=== PATIENT | female | born 2000 | race Caucasian/White ===

== ENCOUNTER 2018-06-05 02:37 | Emergency (ER) | payer OTHER ==
--- NOTE | 2018-06-05 02:57 | EDPHY ---
H & P Stated Complaint: SI M1 Time Seen by Provider: 06/05/18 02:47 HPI/ROS: HPI The patient presents with suicidal ideation, placed on M1 hold by [facility] PD after boyfriend contacted police because patient had sent text messages to him stating that she wanted to end her life and that he should notify her family. The patient says she is no longer feeling this way and does not have a plan to hurt herself. She is not sure why she sent these text messages. She says she does have a history of some depression though is not on any medications. In the past she did see a therapist. In 2016 she says that she tried to hurt herself but would not go into further detail. She says school is going okay and that she is eating and sleeping normally.. REVIEW OF SYSTEMS 10 systems were reviewed and negative with the exception of the elements mentioned in the history of present illness. PMHx: Healthy Soc Hx: [facility] student PHYSICAL General Appearance: Alert, tearful Eyes: Pupils equal and round no pallor or injection ENT, Mouth: Mucous membranes moist Respiratory: There are no retractions, lungs are clear to auscultation Cardiovascular: Regular rate and rhythm Gastrointestinal: Abdomen is soft and non-tender, no masses, bowel sounds normal Neurological: A&O, moves all extremities Skin: Warm and dry, no rashes Musculoskeletal: Neck is supple non tender Extremities: symmetrical, full range of motion Psychiatric: Patient is oriented X 3, there is no agitation Source: Patient, Police Exam Limitations: No limitations Constitutional: Initial Vital Signs Temperature (C) 36.6 C 06/05/18 02:53 Heart Rate 96 06/05/18 02:53 Respiratory Rate 16 06/05/18 02:53 Blood Pressure 124/80 H 06/05/18 02:53 O2 Sat (%) 99 06/05/18 02:53 O2 Delivery Mode Room Air Allergies/Adverse Reactions: No Known Allergies Allergy (Unverified 06/05/18 02:52) Home Medications: Medication Instructions Recorded Spironolactone 06/05/18 Medical Decision Making Differential Diagnosis: 18-year-old female presents with suicidal ideation, texting her boyfriend that she wanted to end her life. Now on M1 hold placed by police. Differential diagnosis includes acute stress response, suicidal ideation with underlying depression, alcohol intoxication. At 5:30 a.m., the patient has remained stable throughout her time here in the emergency department. Labs have returned in her urine toxicology is positive for cocaine and marijuana. She is awaiting mental health evaluation. 6:45 a.m. The patient was evaluated by the mental health worker Jerel. The hold was lifted and the patient will be discharged home. She was thought to have some attention seeking behavior and is no longer suicidal. - Data Points Laboratory Results: Laboratory Results 06/05/18 02:45 06/05/18 02:45 06/05/18 06/05/18 06/05/18 04:29 02:45 02:45 WBC RBC Hgb Hct MCV MCH MCHC RDW Plt Count MPV Neut % (Auto) Lymph % (Auto) [place] % (Auto) Eos % (Auto) Baso % (Auto) Nucleat RBC Rel Count Absolute Neuts (auto) Absolute Lymphs (auto) Absolute Monos (auto) Absolute Eos (auto) Absolute Basos (auto) Absolute Nucleated RBC Immature Gran % Immature Gran # Sodium 141 mEq/L mEq/L (135-145) Potassium 3.8 mEq/L mEq/L (3.5-5.2) Chloride 106 mEq/L mEq/L (97-110) Carbon Dioxide 25 mEq/l mEq/l (22-31) Anion Gap 10 mEq/L mEq/L (6-14) BUN 12 mg/dL mg/dL (7-23) Creatinine 0.8 mg/dL mg/dL (0.6-1.0) Estimated GFR > 60 Glucose 104 mg/dL H mg/dL (70-100) Calcium 10.1 mg/dL mg/dL (8.5-10.4) Beta HCG, Qual NEGATIVE Urine Opiates Screen NEGATIVE (NEGATIVE) Urine Barbiturates NEGATIVE (NEGATIVE) Ur Phencyclidine Scrn NEGATIVE (NEGATIVE) Ur Amphetamine Screen NEGATIVE (NEGATIVE) U Benzodiazepines Scrn NEGATIVE (NEGATIVE) Urine Cocaine Screen NON-NEGATIVE H (NEGATIVE) U Marijuana (THC) Screen NON-NEGATIVE H (NEGATIVE) Ethyl Alcohol < 10 mg/dL mg/dL (0-10) 06/05/18 02:45 WBC 6.84 10^3/uL 10^3/uL (3.80-9.50) RBC 4.72 10^6/uL 10^6/uL (4.18-5.33) Hgb 14.6 g/dL g/dL (12.6-16.3) Hct 43.3 % % (38.0-47.0) MCV 91.7 fL fL (81.5-99.8) MCH 30.9 pg pg (27.9-34.1) MCHC 33.7 g/dL g/dL (32.4-36.7) RDW 12.6 % % (11.5-15.2) Plt Count 341 10^3/uL 10^3/uL (150-400) MPV 9.1 fL fL (8.7-11.7) Neut % (Auto) 24.9 % L % (39.3-74.2) Lymph % (Auto) 65.6 % H % (15.0-45.0) [place] % (Auto) 5.8 % % (4.5-13.0) Eos % (Auto) 2.5 % % (0.6-7.6) Baso % (Auto) 0.9 % % (0.3-1.7) Nucleat RBC Rel Count 0.0 % % (0.0-0.2) Absolute Neuts (auto) 1.70 10^3/uL 10^3/uL (1.70-6.50) Absolute Lymphs (auto) 4.49 10^3/uL H 10^3/uL (1.00-3.00) Absolute Monos (auto) 0.40 10^3/uL 10^3/uL (0.30-0.80) Absolute Eos (auto) 0.17 10^3/uL 10^3/uL (0.03-0.40) Absolute Basos (auto) 0.06 10^3/uL 10^3/uL (0.02-0.10) Absolute Nucleated RBC 0.00 10^3/uL 10^3/uL (0-0.01) Immature Gran % 0.3 % % (0.0-1.1) Immature Gran # 0.02 10^3/uL 10^3/uL (0.00-0.10) Sodium Potassium Chloride Carbon Dioxide Anion Gap BUN Creatinine Estimated GFR Glucose Calcium Beta HCG, Qual Urine Opiates Screen Urine Barbiturates Ur Phencyclidine Scrn Ur Amphetamine Screen U Benzodiazepines Scrn Urine Cocaine Screen U Marijuana (THC) Screen Ethyl Alcohol Departure - Departure Disposition: Home, Routine, Self-Care Clinical Impression: Cocaine use, Marijuana use, Stress response Condition: Good Instructions: Depression (ED) Additional Instructions: Please [facility]-up with the student center for further care. Referrals: [facility] Perdomo,. [Clinic] - As per Instructions
[2018-06-05 03:00] LABS: PLATELET COUNT 341 10^3/uL (150-400)
--- NOTE | 2018-06-05 06:34 | ASMTTCLDSP ---
TLC Discharge Disposition Disposition: Answers: Discharge If Answers: Yes DISCHARGED: Patient/family given suicide hotline info & SAMHSA brochure? Disposition Notes: Notes: Pt stated commitment or ability to keep self safe, denied thoughts of self harm or harm to others. Pt expressed a desire to f/u with [facility] at . Pt was given local hotline information and SAMHSA brochure After an Attempt and encouraged to follow up with [facility]. Discharge Concerns/Recommendations: Notes: In consultation with [facility] ED physician, Verna Allan MD, Dr. Allan concurred that pt does not appear to meet 27-65 criteria requiring psychiatric hospitalization as pt does not appear to be an imminent risk of harm to self/others/gravely disabled due to a mental illness condition. Dr. Allan provided verbal order read back vacating M1 hold at 0600 hrs. Was patient given the Answers: Not applicable Inpatient Behavioral Health Prohibited Belongings List while in the ED? Psychiatrist vacating M1 Verna Allan MD Hold: Date and time M1 hold 06/05/2018 06:00 AM vacated (time format is hh:mm): Type of Hold: Answers: M1/72-hour Hold Hold initiated by: Answers: Police Date Signed: 06/05/2018 06:34 AM Electronically Signed By:Jerel Tran
--- NOTE | 2018-06-05 06:34 | ASMTTLCEVL ---
TLC Evaluation - Basic Information Evaluation Start Date and 06/05/2018 05:30 AM Time Hospital Status Answers: M1 Hold 72-hr M1 Hold Start Date 06/05/2018 02:07 AM and Time Patient statement Notes: I was just upset. Me and my boyfriend broke up. I was wanting attention. I dont want to kill myself and can ensure my own safety if permitted to be released from the ED. Id like to follow up with the counseling services offered at [facility]. 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 Respondent told Blas she was going to cut herself and there was a knife on her bed (large kitchen knife.). Diagnosis History Notes: Pt reported prior history of depression. Prior suicide attempts Notes: Pt reported she took an overdose of OTC pills at age 14 which was followed by a hospitalization in [place]. Prior hospitalizations Notes: Pt reported being hospitalized for a week at a hospital in [place] at age 14 following an overdose of OTC pills. Pt could not recall name of the hospital. Treatment Responses Notes: Saw a counselor for a couple of months following her discharge from the hospital in [place]. History of violence Notes: Pt denied homicidal ideation/intent/plans to harm anyone, denied any history of aggression/violence. Therapist: None currently. Saw a counselor for a couple of months following her discharge from the hospital in [place]. Psychiatrist: None. Medications (name, dosage, route, freq uency) Notes: None. Allergies/Reaction Notes: NKDA. Sleep Notes: Pt reported good. Appetite Notes: Pt reported good. Medical/Surgical history Notes: Noncontributory. Substance use history (frequency, intensity, his tory, duration) Notes: Pt reported having first tried alcohol and marijuana at age 14. She reported she typically will consume 4-5 shots of Vodka 1-2 times per week, with last use being on 06/02/18. She reported she typically will smoke less than a gram of marijuana per episode, on a weekly basis, with last use being on 06/02/18. She reported she first tried cocaine at age 17 and stated she will use it when offered by friends, perhaps on a monthly basis, with last reported use being on 06/02/18 a couple of lines of cocaine. She otherwise denied any other history of illicit substance use. BAL was zero. UDS results positive for marijuana and cocaine. Family composition Notes: Parents when pt was 8 yo. Both parents still reside in the [place], [place] area. She has 2 brothers, ages 17 and 12 and a sister, age 14. Need for family Answers: No participation in patient's care Family psychiatric/substance abuse history Notes: None reported. Developmental history Notes: Pt reported she was born and raised in [place], [place]. She endorsed having achieved normal childhood developmental milestones. She denied any history of learning challenges or ADD/ADHD. She denied any history of TBIs, LOC or concussions. She denied any childhood history of physical, emotional or sexual abuse/trauma. Abuse concerns Answers: None Marital status/children Notes: Pt is single, never , no dependents. She reported she had been dating her boyfriend, Blas for the past year but broke up last night. Living situation Notes: Pt resides in a rental house with 2 female roommates. Sexual history/orientation Notes: Sexually active. Heterosexual. Peer support/family strengths Notes: Pt identified having close friendship with friend named Dinah. Education level/history Notes: Pt is currently a sophomore at studying economics and reported that school is going well. 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 Notes: None. Legal Notes: Pt reported obtaining a minor in possession (MIP) of marijuana at age 17. She reported she had to attend substance abuse education classes, community services, court costs/fines. Muslim/Spiritual Notes: None identified which might impact treatment. Leisure Notes: Pt stated being with friends. Patient's strengths Answers: Intelligent (Please select at least TWO strengths): Motivated for Treatment Willingness TLC Evaluation - Mental Status Exam Appearance: Answers: Appropriate Clean Unkempt Eye Contact: Answers: Good/Direct Mood: Answers: Sad Affect: Answers: Calm Congruent w/ Mood Sad Subdued Behavior: Answers: Appropriate Cooperative Fatigued Manipulative Passive Speech: Answers: Relevant Logical Clear Coherent Soft Thought Process: Answers: Organized Oriented Alert Goal Oriented Intact Insight: Answers: Fair Judgement: Answers: Fair Manic Signs/Symptoms Answers: Impulsivity Depression Answers: Sad Mood Signs/Symptoms: Hallucinations: Answers: None Current Stage of Change Answers: Preparation Pt reported to have Answers: No suicidal/self-injuring ideation/behavior? Pt reported to be making Answers: No suicidal/self-injuring threats? Pt reported to have Answers: No aggression/assault ideation/behavior? Pt reported to be making Answers: No aggression/assault threats? Pt exhibits inability to Answers: No care for self/grave disability? Ideation/behavior is Answers: No chronic? Patient has a specific Answers: No plan? Pt has access to means to Answers: No execute the plan? Ideation involves Answers: No serious/lethal intent? Ideation has Answers: No delusional/hallucinatory content? History of Answers: Yes suicidal/self-injuring ideation, behavior, or threats? History of Answers: No aggressive/assaultive ideation, behavior, or threats? History of serious Answers: No physical harm to self/others while in treatment setting? [facility] Evaluation - Suicide/Homicide Risk Suicide Risk Factors: Answers: Cluster "B" D/O or Traits Flat Affect Impulsivity Lack of Muslim Support Prior Suicide Attempt(s) Single Homicide/violence risk Answers: None factors: Current Suicidal Answers: No Ideation? Current Suicidal Ideation Answers: Yes in the Past 48 Hours? Current Suicidal Ideation Answers: No in the Past Month? Current Suicidal Answers: No Ideation, Worst Ever? Suicide Internal Answers: Absence of Psychosis Protective Factors: Suicide External Answers: Positive Therapeutic Protective Factors: Relationships Ranking of patient's Answers: Low suicidal risk: Ranking of patient's Answers: Low homicidal risk: TLC Evaluation - Wrap-up BDI Total Score: 4 BDI Question #2 Score: 1 BDI Question #9 Score: 1 BSS Total Score: 0 AXIS I Diagnosis (include DSM-V and ICD-10 codes), must also be entered in [employer], which is the source of truth. Notes: Relationship Distress With Intimate Partner V61.10 (Z63.0) Alcohol Use Disorder, moderate 303.90 (F10.20) Cannabis Use Disorder, mild 305.20 (F12.10) Cocaine Use Disorder, mild 305.60 (F14.10) In consultation with [facility] ED physician, Verna Allan MD, Dr. Allan concurred that pt does not appear to meet 27-65 criteria requiring psychiatric hospitalization as pt does not appear to be an imminent risk of harm to self/others/gravely disabled due to a mental illness condition. Dr. Allan provided verbal order read back vacating M1 hold at 0600 hrs. Date Signed: 06/05/2018 06:33 AM Electronically Signed By:Jerel Tran
[2018-06-05 06:56] VITALS: BP 107/74
== END 2018-06-05 06:55 | disposition home or self-care (01) ==
LOC: EEVIPCON 02:37
DX: F43.0 Acute stress reaction (principal); F14.90 Cocaine use, unspecified, uncomplicated; F12.90 Cannabis use, unspecified, uncomplicated
CPT/HCPCS: 80305; G0480

== ENCOUNTER 2018-06-16 17:46 | Inpatient (IN) | payer MEDICAID, OTHER ==
--- NOTE | 2018-06-16 17:48 | EDPHY ---
H & P Time Seen by Provider: 06/16/18 17:48 HPI/ROS: HPI CHIEF COMPLAINT: Suicidal ideation, M1 hold by [place] [employer]. HISTORY OF PRESENT ILLNESS: This is a 18-year-old female suffers from depression, presents emergency room stating that she is severely depressed and suicidal. She reports that her plan today was to go buy a gun so that she could shoot herself and kill herself. She arrives to emergency room on M1 hold by police. Past Medical History: Significant medical history for depression not on any medications. Past Surgical History: No recent surgery Social History: [employer] student, denies drugs alcohol tobacco. Family History: Noncontributory ROS REVIEW OF SYSTEMS: 10 Systems were reviewed and negative with the exception of the elements mentioned in the history of present illness. Exam Constitutional unkept. triage nursing summary reviewed, vital signs reviewed, awake/alert. Eyes normal conjunctivae and sclera, EOMI, PERRLA. HENT normal inspection, atraumatic, moist mucus membranes, no epistaxis, neck supple/ no meningismus, no raccoon eyes. Respiratory clear to auscultation bilaterally, normal breath sounds, no respiratory distress, no wheezing. Cardiovascular rate normal, regular rhythm, no murmur, no edema, distal pulses normal. Gastrointestinal soft, non-tender, no rebound, no guarding, normal bowel sounds, no distension, no pulsatile mass. Genitourinary no CVA tenderness. Musculoskeletal no midline vertebral tenderness, full range of motion, no calf swelling, no tenderness of extremities, no meningismus, good pulses, neurovascularly intact. Skin pink, warm, & dry, no rash, skin atraumatic. Neurologic awake, alert and oriented x 3, AAOx3, moves all 4 extremities equally, motor intact, sensory intact, CN II-XII intact, normal cerebellar, normal vision, normal speech. Psychiatric flat affect, depressed suicidal. Heme/Lymph/Immune no lymphadenopathy. Differential Diagnosis: Includes but is not limited to in a particular order severe depression, mood disorder, bipolar disorder, suicidal ideation with plan. Medical Decision Making: Plan for this patient blood draw for medical clearance , drug screen. Patient will need mental health evaluation. Patient is on M1 hold. Most likely she will need inpatient psychiatric hospitalization. Re-evaluation: 2136: Patient has been accepted at [address] [place] [address]. EMTALA FORM filled out appropriate transfer be set up. Source: Patient - Medical/Surgical History Hx Asthma: No Hx Chronic Respiratory Disease: No Hx Diabetes: No Hx Cardiac Disease: No Hx Renal Disease: No Hx Cirrhosis: No Hx Alcoholism: No Hx HIV/AIDS: No Hx Splenectomy or Spleen Trauma: No Other PMH: achne, depression, Suicide attempt at age 14 - Social History Smoking Status: Never smoked Constitutional: Initial Vital Signs Temperature (C) 36.4 C 06/16/18 17:55 Heart Rate 105 H 06/16/18 17:55 Respiratory Rate 16 06/16/18 17:55 Blood Pressure 89/62 L 06/16/18 17:55 O2 Sat (%) 98 06/16/18 17:55 O2 Delivery Mode Room Air Allergies/Adverse Reactions: No Known Allergies Allergy (Unverified 06/05/18 02:52) Home Medications: Medication Instructions Recorded Spironolactone 06/05/18 Medical Decision Making - Data Points Laboratory Results: Laboratory Results 06/16/18 18:15 06/16/18 18:15 06/16/18 06/16/18 06/16/18 18:15 18:15 18:15 WBC RBC Hgb Hct MCV MCH MCHC RDW Plt Count MPV Neut % (Auto) Lymph % (Auto) [place] % (Auto) Eos % (Auto) Baso % (Auto) Nucleat RBC Rel Count Absolute Neuts (auto) Absolute Lymphs (auto) Absolute Monos (auto) Absolute Eos (auto) Absolute Basos (auto) Absolute Nucleated RBC Immature Gran % Immature Gran # Sodium 139 mEq/L mEq/L (135-145) Potassium 3.8 mEq/L mEq/L (3.5-5.2) Chloride 107 mEq/L mEq/L (97-110) Carbon Dioxide 21 mEq/l L mEq/l (22-31) Anion Gap 11 mEq/L mEq/L (6-14) BUN 14 mg/dL mg/dL (7-23) Creatinine 0.9 mg/dL mg/dL (0.6-1.0) Estimated GFR > 60 Glucose 71 mg/dL mg/dL (70-100) Calcium 9.7 mg/dL mg/dL (8.5-10.4) Beta HCG, Qual NEGATIVE Salicylates < 1.0 mg/dL L mg/dL (2.0-20.0) Urine Opiates Screen NEGATIVE (NEGATIVE) Acetaminophen < 10 mcg/mL L mcg/mL (10-30) Urine Barbiturates NEGATIVE (NEGATIVE) Ur Phencyclidine Scrn NEGATIVE (NEGATIVE) Ur Amphetamine Screen NEGATIVE (NEGATIVE) U Benzodiazepines Scrn NEGATIVE (NEGATIVE) Urine Cocaine Screen NON-NEGATIVE H (NEGATIVE) U Marijuana (THC) Screen NON-NEGATIVE H (NEGATIVE) Ethyl Alcohol < 10 mg/dL mg/dL (0-10) 06/16/18 18:15 WBC 6.61 10^3/uL 10^3/uL (3.80-9.50) RBC 4.67 10^6/uL 10^6/uL (4.18-5.33) Hgb 14.4 g/dL g/dL (12.6-16.3) Hct 42.6 % % (38.0-47.0) MCV 91.2 fL fL (81.5-99.8) MCH 30.8 pg pg (27.9-34.1) MCHC 33.8 g/dL g/dL (32.4-36.7) RDW 12.5 % % (11.5-15.2) Plt Count 277 10^3/uL 10^3/uL (150-400) MPV 9.5 fL fL (8.7-11.7) Neut % (Auto) 50.0 % % (39.3-74.2) Lymph % (Auto) 41.8 % % (15.0-45.0) [place] % (Auto) 5.7 % % (4.5-13.0) Eos % (Auto) 1.5 % % (0.6-7.6) Baso % (Auto) 0.8 % % (0.3-1.7) Nucleat RBC Rel Count 0.0 % % (0.0-0.2) Absolute Neuts (auto) 3.31 10^3/uL 10^3/uL (1.70-6.50) Absolute Lymphs (auto) 2.76 10^3/uL 10^3/uL (1.00-3.00) Absolute Monos (auto) 0.38 10^3/uL 10^3/uL (0.30-0.80) Absolute Eos (auto) 0.10 10^3/uL 10^3/uL (0.03-0.40) Absolute Basos (auto) 0.05 10^3/uL 10^3/uL (0.02-0.10) Absolute Nucleated RBC 0.00 10^3/uL 10^3/uL (0-0.01) Immature Gran % 0.2 % % (0.0-1.1) Immature Gran # 0.01 10^3/uL 10^3/uL (0.00-0.10) Sodium Potassium Chloride Carbon Dioxide Anion Gap BUN Creatinine Estimated GFR Glucose Calcium Beta HCG, Qual Salicylates Urine Opiates Screen Acetaminophen Urine Barbiturates Ur Phencyclidine Scrn Ur Amphetamine Screen U Benzodiazepines Scrn Urine Cocaine Screen U Marijuana (THC) Screen Ethyl Alcohol Medications Given: Discontinued Medications Sodium Chloride (Ns) 1,000 mls @ 0 mls/hr IV ONCE ONE PRN Reason: Wide Open Stop: 06/16/18 18:04 Last Admin: 06/16/18 18:14 Dose: 1,000 mls Departure - Departure Disposition: [facility] IP Clinical Impression: Suicidal ideation, Depression Condition: Fair Referrals: NONE *PRIMARY CARE P,. [Primary Care Provider] - As per Instructions
[2018-06-16] MEDS ORDERED: NS 1,000 ML IV ONE (18:03)
[2018-06-16 18:38] LABS: PLATELET COUNT 277 10^3/uL (150-400)
--- NOTE | 2018-06-16 21:32 | ASMTTLCEVL ---
TLC Evaluation - Basic Information Evaluation Start Date and 06/16/2018 07:00 PM Time Hospital Status Answers: M1 Hold 72-hr M1 Hold Start Date 06/16/2018 05:00 PM and Time Patient statement Notes: I went to [facility] today to talk to a psychitarist who precribed Lurasidon 20mg for 2 weeks starting, and my dad was against medication and told me I had to get used to being sad and his insurance wouldn't cover the medication. I texted [place] I was going to go buy a gun and kill myself. Last night at a green party I did do some cocaine (5 lines) I had a panic attack last night and heard voices, but i've never heard voices before". 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 Pt texted her boy friend today that her plan today was to go buy a gun so that she could shoot herself and kill herself. Pt had gone to [facility] today for help and saw a psychiatrist who prescribed Lutuda starting with 20mg for 2 weeks before increasing. Pt has some form of adventist insurance and pt spoke with her father who doesn't want her to take medication and told her she just had to get used to being sad". Per pt's mother the pt has some reservations about counseling but pt did seek help from [facility] today and the psychiatrist prescribed 20mg latuda for two weeks before increasing dosage. Pt's father discouraged pt from using medication today. Per pt's BF pt became more dispondant. Pt engaged in some high risk drug using bx at a green party which she reported is not like her. Pt's BF and Mother both are very concerned about pt and thinks she needs medication and help. Pt is very tearful with a very flat affect. Pt was previously seen in ED On m1 hold 06/05/18 due to a beakup. Diagnosis History Notes: Pt reported prior history of depression and suicide attempt at 14YO Prior suicide attempts Notes: Pt reported she took an overdose of OTC pills at age 14 which was followed by a hospitalization in [place]. Prior hospitalizations Notes: Pt reported being hospitalized for a week at a hospital in [place] at age 14 following an overdose of OTC pills. Pt could not recall name of the hospital. Treatment Responses Notes: Saw a counselor for a couple of months following her discharge from the hospital in [place], as part of family counseling. Pt's father ended up marrying the counselor. Per pt's mother the pt has some reservations about counseling but pt did seek help from [facility] today and the psychiatrist prescribed 20mg latuda for two weeks before increasing dosage. Pt's father discouraged pt from using medication today, which destabilized pt. History of violence Notes: Pt denied homicidal ideation/intent/plans to harm anyone, denied any history of aggression/violence. Therapist: None currently. Saw a counselor for a couple of months following her discharge from the hospital in [place] Psychiatrist: [facility] Medications (name, dosage, route, freq uency) Notes: Prescribed Latuda (Lurasidon) 20mg today but didn't fill the prescription due to her fathers wishes/insurance plan Allergies/Reaction Notes: No Known Allergies Sleep Notes: "Not good" 4-5 hours some nights, lots of sleep other nights, sometimes no sleep at all." Appetite Notes: Pt reported decreased" Medical/Surgical history Notes: Non-contributory Substance use history (frequency, intensity, his tory, duration) Notes: Pt reported she did 5 lines of cocaine at a green party last night, and per the bf the night before she reported she took a a xanax. Like last time BAL was zero. UDS results positive for marijuana and cocaine. Per previous eval - Pt reported having first tried alcohol and marijuana at age 14. She reported she typically will consume 4-5 shots of Vodka 1-2 times per week, with last use being on 06/02/18. She reported she typically will smoke less than a gram of marijuana per episode, on a weekly basis, with last use being on 06/02/18. She reported she first tried cocaine at age 17 and stated she will use it when offered by friends, perhaps on a monthly basis, with last reported use being on 06/02/18 a couple of lines of cocaine. She otherwise denied any other history of illicit substance use. BAL was zero. UDS results positive for marijuana and cocaine. Family composition Notes: Parents when pt was 8 yo. Both parents still reside in the [place], [place] area. She has 2 brothers, ages 17 and 12 and a sister, age 14. Per pt's mother pt is somewhat close with her siblings and was texting her 15 yo sister today.However, when things are bad she pushes everyone away. Need for family Answers: Yes participation in patient's care Family psychiatric/substance abuse history Notes: Per pt's mother - father side may have some psychiatric issues but it is unclear. Per pt's mother the father the family counselor, which she said we should read into however we see fit. Developmental history Notes: Per Previous Eval Pt reported she was born and raised in [place], [place]. She endorsed having achieved normal childhood developmental milestones. She denied any history of learning challenges or ADD/ADHD. She denied any history of TBIs, LOC or concussions. She denied any childhood history of physical, emotional or sexual abuse/trauma. Abuse concerns Answers: None Marital status/children Notes: Pt is single, never , no dependents. She reported she had been dating her boyfriend, Blas for the past year but broke up last night. Living situation Notes: Pt resides in a rental house with 2 female roommates. Sexual history/orientation Notes: Sexually active. Heterosexual. Peer support/family strengths Notes: Pt identified having close friendship with friend named Dinah. Education level/history Notes: Pt is currently a sophomore at studying economics and reported that school is going well. 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 Notes: None Legal Notes: Pt reported obtaining a minor in possession (MIP) of marijuana at age 17. She reported she had to attend substance abuse education classes, community services, court costs/fines. Congregation/Spiritual Notes: None identified which might impact treatment. Leisure Notes: Pt stated being with friends. Collateral Notes: Collateral obtained from PT's mother Natalie [phone] and from previous psychiatric eval on 06/05/18 Patient's strengths Answers: Intelligent (Please select at least TWO strengths): Motivated for Treatment Supportive Family Willingness TLC Evaluation - Mental Status Exam Appearance: Answers: Appropriate Clean Unkempt Disheveled Eye Contact: Answers: Intermittent Mood: Answers: Depressed Sad Affect: Answers: Blunted Calm Congruent w/ Mood Flat Sad Subdued Behavior: Answers: Appropriate Cooperative Crying Fatigued Manipulative Passive Speech: Answers: Relevant Logical Clear Coherent Soft Thought Process: Answers: Organized Oriented Alert Goal Oriented Intact Insight: Answers: Fair Judgement: Answers: Fair Manic Signs/Symptoms Answers: Impulsivity Mood Swings Depression Answers: Crying Spells Signs/Symptoms: Difficulty Concentrating Diminished Interest Diminished Pleasure Flat Affect Hopelessness Psychomotor Retardation Sad Mood Withdrawn Worthlessness Anxiety Signs/Symptoms Answers: Panic Attacks Hallucinations: Answers: None Auditory Current Stage of Change Answers: Precontemplation Pt reported to have Answers: Yes suicidal/self-injuring ideation/behavior? Pt reported to be making Answers: Yes suicidal/self-injuring threats? Pt reported to have Answers: No aggression/assault ideation/behavior? Pt reported to be making Answers: No aggression/assault threats? Pt exhibits inability to Answers: No care for self/grave disability? Ideation/behavior is Answers: Yes chronic? Patient has a specific Answers: Yes plan? Pt has access to means to Answers: Yes execute the plan? Ideation involves Answers: Yes serious/lethal intent? Ideation has Answers: No delusional/hallucinatory content? History of Answers: Yes suicidal/self-injuring ideation, behavior, or threats? History of Answers: No aggressive/assaultive ideation, behavior, or threats? History of serious Answers: No physical harm to self/others while in treatment setting? TLC Evaluation - Suicide/Homicide Risk Suicide Risk Factors: Answers: Alcohol/Heavy Drug Use Anhedonia Cluster "B" D/O or Traits Financial Difficulties Hopelessness Impulsivity Inadequate Social Support Lack of Congregation Support Major Depression Organized Lethal Plan Prior Suicide Attempt(s) Problems with Partner School Difficulties Homicide/violence risk Answers: Cluster "B" D/O or Traits factors: Current Suicidal Answers: Yes Ideation? Current Suicidal Ideation Answers: Yes in the Past 48 Hours? Current Suicidal Ideation Answers: Yes in the Past Month? Current Suicidal Answers: Yes Ideation, Worst Ever? Suicide Internal Answers: Absence of Psychosis Protective Factors: Suicide External Answers: Social Support Protective Factors: Ranking of patient's Answers: Imminent suicidal risk: Ranking of patient's Answers: Low homicidal risk: TLC Evaluation - Wrap-up BDI Total Score: 30 BDI Question #2 Score: 3 BDI Question #9 Score: 1 BSS Total Score: 26 AXIS I Diagnosis (include DSM-V and ICD-10 codes), must also be entered in [facility], which is the source of truth. Notes: Major Depressive Disorder, recurrent, severe 296.33 (F33.2) Alcohol Use Disorder, moderate 303.90 (F10.20) Cannabis Use Disorder, mild 305.20 (F12.10) Cocaine Use Disorder, mild 305.60 (F14.10) In consultation with [facility] ED physician, Rene Olivier MD and on-call psychiatrist, John Rebollar MD, both concurred that pt appears to meet 27-65 criteria requiring psychiatric hospitalization as pt appears to be imminent risk of harm to self due to a mental illness condition. Pt was read the Patient Rights and Responsibilities Statement on (06/16/2018), original placed on chart, and was given photocopy of Rights. Pt signedthe Patient Rights. Pt was given the 3[facility] prohibited belongings list while in the ED. Evaluation End Date and 06/16/2018 09:00 PM Time (HH:MARNIE): Date Signed: 06/16/2018 09:31 PM Electronically Signed By:Avery Villanueva
--- NOTE | 2018-06-16 21:33 | ASMTTCLDSP ---
TLC Discharge Disposition Disposition: Answers: Admit Disposition Notes: Notes: In consultation with [facility] ED physician, Rene Olivier MD and on-call psychiatrist, John Rebollar MD, both concurred that pt appears to meet 27-65 criteria requiring psychiatric hospitalization as pt appears to be imminent risk of harm to self due to a mental illness condition. Pt was read the Patient Rights and Responsibilities Statement on (06/16/2018), original placed on chart, and was given photocopy of Rights. Pt signedthe Patient Rights. Pt was given the 3N prohibited belongings list while in the ED. For inpatient John Rebollar MD admission, the following psychiatrist agreed to accept patient for admission to [facility] ([facility]): Type of Hold: Answers: M1/72-hour Hold Hold initiated by: Answers: Police Date Signed: 06/16/2018 09:32 PM Electronically Signed By:Avery Villanueva
[2018-06-16] MEDS ORDERED: ACETAMINOPHEN 325 MG TAB PO PRN (22:50)
[2018-06-16] MEDS ORDERED: MAGNESIUM HYDROXIDE 30 ML UDCUP PO PRN (22:50)
[2018-06-16] MEDS ORDERED: MAG HYDROX/AL HYDROX/SIMETH 30 ML UDCUP PO PRN (22:50)
[2018-06-16] MEDS ORDERED: NICOTINE POLACRILEX 2 MG GUM B PRN (22:50)
[2018-06-16] MEDS ORDERED: LORazepam 0.5 MG TAB PO PRN (22:50)
[2018-06-16] MEDS ORDERED: OLANZapine 5 MG TAB PO PRN (22:51)
--- NOTE | 2018-06-17 15:31 | GCON ---
[f rep st] CONSULTATION MEDICINE CONSULTATION. DATE OF CONSULTATION: 06/17/2018 This is a medicine consultation at the request of [facility] for clearance for psychiatric car e. CHIEF COMPLAINT: Suicidal ideation. HISTORY: This is a 18-year-old female with past medical history of depression, who presented to the emergency room on 06/16/2018, stating that she has a plan to kill herself. She was brought in on an M1 hold. At the time of my evaluation, patient is somnolent and states she is still depressed, but n o longer has a plan to kill herself. She denies any other complaints including pain, fever, recent f noe or other illness. PAST MEDICAL HISTORY: Depression. PAST SURGICAL HISTORY: Denies. SOCIAL HISTORY: Patient is a [employer] student. She denies significant alcohol or drug use. FAMILY HISTORY: Reviewed, noncontributory. REVIEW OF SYSTEMS: 10-point review of systems obtained and negative except as per HPI. HOME MEDICATIONS: Spironolactone and ibuprofen. ALLERGIES: No known drug allergies. PHYSICAL EXAM: VITAL SIGNS: BP 101/55, heart rate 91, respiratory rate 14, O2 sats 98% on room air, temperature is 36.8. GENERAL APPEARANCE: This is a thin female. She is awake and alert. She is in no acute distress. EYES: Anicteric. HENT: Oropharynx clear. CARDIOVASCULAR: Regular rate and rhythm. No MRG. PULMONARY: CTA bilaterally. Normal breathing. ABDOMEN: Soft, nontende r. EXTREMITIES: No clubbing, cyanosis or edema. SKIN: Warm, dry, well perfused. NEURO/PSYCH: Flat affect. Oriented, appropriate. CLINICAL DATA: CBC reviewed, completely normal. Chemistry likewise is within normal limits. Beta H CG is negative. U tox is positive for cocaine and marijuana. ASSESSMENT/PLAN: A 18-year-old female with no significant past medical history other than depression , presenting with suicidal ideation. 1. Suicidal ideation in the setting of a positive urine toxicity and unclear if prompted by acute in toxication. She denies ongoing suicidality currently, but does admit to ongoing depression. She is currently on an M1 hold and will be evaluated by Psychiatry. This is her 2nd presentation for suicid al ideation in the last month. No medical indication to defer any treatment thought to be indicated by the psychiatric service. 2. Polysubstance abuse. The patient was positive for cocaine and marijuana on her last 2 admissions . She is not forthcoming regarding her use. Unclear how this is contributing to above. 3. Depression, not otherwise specified, as per problem #1. 4. Patient new to my care. Old records reviewed and summarized as per HPI and Past Medical History. Care plan reviewed with ER physician. Thank you for this consultation. Medicine will be available peripherally should questions arise [facility] patient's hospitalization. /[id number]/MODL
--- NOTE | 2018-06-17 17:07 | BAPA ---
[ rep ] ADMISSION PSYCHIATRIC ASSESSMENT DATE OF SERVICE: 06/17/2018 CHIEF COMPLAINT: "I went to [facility] today to talk to a psychiatrist, who prescribed lurasidone 20 mg. My dad was against me taking the medication, and told me I had to get used to being sad, and his insurance wouldn't cover the medication. I texted Blas (brother) I was going to buy a gun and kill myself." HISTORY OF PRESENT ILLNESS: The patient is a 18-year-old single woman. She is a [employer] sophomore. She has a prior history of depression with 1 suicide attempt as a teenager. The patient presented to the ED via EMS on an M1 hold placed by police. The patient had texted her boyfriend on 06/16/2018, stating that she had a plan to go and buy a gun so she could shoot herself. The patient had her first appointment with [facility] prescriber on Tuesday06/16/2018 , who diagnosed her with bipolar disorder type 2 and prescribed Latuda. The patient spoke with her father by phone, and her father was against her being on medication. He told her that she had "just get used to being sad." The patient said that sent her into a downward spiral. She became frustrated, angry , upset. She had feelings of hopelessness, helplessness, worthlessness, anxiety. The patient's boyfriend was upset, and he called the patient's mother , who called 911. The patient was contacted by police at her residence and brought to the ED on an M1 hold. The patient admitted that she had been using cocaine and marijuana recently. She said she did cocaine the day before her visit to the ED and that she does marijuana on a regular basis, at least several times a week. When this MD met with the patient and the menagerie caretaker on the inpatient Behavioral Health Services Unit. She was calm, cooperative, pleasant. Her affect was euthymic. She denied having any thoughts, plans, or intents to hurt herself or anyone else. She said she was "over it (the suicidal ideation)." The patient told this MD that she had been depressed for "a couple of years," but she said she had not sought any treatment. She said that she had gone to [facility] on Tuesday to see a counselor and they set her up with an appointment with a prescriber, whom she saw on Tuesday. She said that the reason that she was prescribed Latuda is because the prescriber that she met with thought she was "on the bipolar spectrum." Although the patient does not ever endorse periods of felix, she says that she has been depressed since she was a teenager off and on. She says that the last couple of years have been "very stressful," including recent breakup with her boyfriend, troubles in relationships, and pressure from academic work at college have all made her feel more sad and depressed than she felt as a teenager. PAST PSYCHIATRIC HISTORY: The patient was seen in the ED on 06/05/2018 on an M1 hold after voicing suicidal ideation after breakup with her boyfriend. The patient has 1 suicide attempt when she was 14. She took an overdose of over-the -counter pills and was hospitalized in [place]. That is the only previous psychiatric hospitalization in her history. She has no history of felix or psychotic symptoms. She has not been under the care of a psychiatrist since she was at the hospital in [place]. She has done therapy off and on over the last several years. She does not remember the medication that she took in the past, but she says that it was an antidepressant. She says that she has not been on any medications for at least 4 years. The patient said that she was in family counseling when she got out of the hospital in [place]. She says that her father ended up marrying her therapist. The patient's mother told the ED lavatory attendant that the patient has reservations about seeking counseling because of what happened with her family in the past. ALLERGIES: The patient has no known drug allergies. CURRENT MEDICATIONS: The patient is currently prescribed ibuprofen, where she takes xepy-[id number]-[id number] ibuprofen 200 to 600 mg daily p.r.n. She is also taking spironolactone 50 mg p.o. q.a.m. and 100 mg p.o. at bedtime, but this medication was not reported to the ED physician. The hospitalist who saw the patient noted that the patient was taking spironolactone, but did not state any medical condition under medical history as to why the patient would be on Aldactone. LABS: White cell count was 6.61, hemoglobin 14.4, hematocrit 42.6, platelet count 277. Sodium 139, potassium 3.8, chloride 107, BUN 14, creatinine 0.9, glucose 71, calcium 9.7. Beta hCG was negative. Urine drug screen was positive for cocaine and marijuana, negative for all other drugs of abuse. Acetaminophen and salicylate levels were undetected. PAST MEDICAL HISTORY: The only medical problem the patient endorses is depression. She denies any surgical history. Dr. Calderon did the patient's H and P, and for past medical history Dr. Calderon only mentioned depression. SOCIAL HISTORY: The patient was born and raised in [place]. Her parents when she was 8 years old. Both of her parents still live in [place]. She has 2 brothers, 17 and 12, and a sister, 14, who live with patient's mother. Patient is close to her siblings, and her mother has a strained relationship with her dad because her dad their family therapist when she was 14. The patient had no history of learning challenges or attention deficit hyperactivity disorder. She has no history of TBIs. She currently lives in a rental apartment with 2 roommates. She broke up with her boyfriend a week ago, but got back together, and then broke up with him again last night. The current relationship status is undetermined. The patient is currently a sophomore studying economics. She also works 10 hours a week at the [employer]. FAMILY HISTORY: Mother reports that the father may have some psychiatric issues , but it is unknown whether he has ever been diagnosed or treated. No other mention of mental illness or substance abuse in the family. SUBSTANCE USE HISTORY: Patient admits that she did 5 lines of cocaine at a alliance party on 06/15/2018. The patient's boyfriend also reports that the day before on Tuesday, she had taken some Xanax and was acting "loopy." The patient reports that she first started drinking alcohol when she was 14 and tried marijuana at that age. She says that she will typically drink 4-5 shots of vodka 1-2 times per week. Her last use was on 06/02/2018. She states that she smokes less than a gram of marijuana at least 1-2 times a week. Says that the last time she used was on 06/02/2018. She states that she uses cocaine only when offered by friends, which she says happens on a monthly basis. TRAUMA HISTORY: Patient denies any history of sexual, physical, or emotional trauma. LEGAL HISTORY: The patient reports that she had a minor possession charge when she was 17. She said that she had to attend substance abuse education classes, and do community service, and pay her court costs. She denies any other legal issues. MENTAL STATUS EXAMINATION: This is a tall, thin, appropriately groomed woman sitting in a chair at her desk, wearing a sweatshirt and sweat pants. She is alert and oriented x4. Her affect is euthymic. Her demeanor is appropriate. She makes good eye contact. Speech rate and volume are both normal. Her intellectual function appears to be average based upon her vocabulary, fund of knowledge, and educational history. She currently denies feeling sad, helpless , hopeless, worthless, and anxious, although she reports that she has been depressed off and on for the last couple of years. She denies any symptoms of psychosis, including denying auditory and visual hallucinations, paranoid delusions, and ideas of reference. She admits to having auditory hallucinations after she did 5 lines of Coke on , 06/15/2018, but says that it is the only time that has ever happened. There are no signs or symptoms of felix. She does not have increase in goal-directed activity, decreased need for sleep, racing thoughts, pressured speech, grandiose delusions or elevated or elated mood. She denies any thoughts, plans, or intents to hurt herself or anyone else. Her thought process is linear and goal directed. Her insight and judgment are both impaired, as evidenced by her not seeking treatment despite having depression off and on for 2 years and using a number of mood-altering drugs. IMPRESSION: 1. Major depressive disorder, recurrent, severe, without psychotic features. Rule out bipolar disorder. 2. Substance-induced mood disorder. 3. Cannabis use disorder, severe. 4. Cocaine use disorder, severe. 5. Alcohol use disorder, severe. 6. Lack of social support, conflict with father, difficulty in current relationship with boyfriend, recently broken up twice in the last 2 weeks, stress from academic work. PLAN: 1. Admit to the inpatient Behavioral Health Services Unit on [address] on an M1 hold. 2. We will monitor closely for safety. The patient is currently not exhibiting any signs of unsafe behavior. She is acting appropriately, and she denies any thoughts, plans, or intents to hurt herself or anyone else. 3. We will continue to monitor and observe the patient. 4. This MD did review the indications for Latuda. The patient states that her prescriber at [facility] had wanted to start her on this medication Tuesday. The patient states that she is aware of the risks, benefits, and side effects of this medication, that her outpatient prescriber reviewed "in detail," and gave the patient an information handout to read about the medication. This MD answered the patient's questions about the medication. This MD let the patient know that he did not feel like she met criteria to qualify for a diagnosis of bipolar disorder, as she had denied any prior history of felix or hypomania. She states that she was diagnosed by her recent [facility] prescriber as being "on the spectrum of bipolar" with depressed symptoms. This MD spent some time talking about the differences between major depressive disorder, unipolar depression, and bipolar depression, and explained that given the fact that the patient had taken an antidepressant medication when she was 14 without inducing any felix, and has no prior history of manic episodes, that this MD felt comfortable prescribing antidepressant medication to help relieve her symptoms of depression, but the patient stated that she felt comfortable taking Latuda, and that after her discussion with the outpatient prescriber at [facility], that she was not interested in being on an antidepressant, that she wanted to take Latuda. 5. This MD spent some time talking to the patient about her use of mood- altering substances, including monthly use of cocaine, weekly use of marijuana, and several times a week, use of alcohol. MD explained the effect of these medications on not only brain and cognitive function, but also on mood and thought. MD mentioned that these medications can cause patients to have mood lability, irritability, anxiety, sadness, depression, elation, erratic mood swings, decreased focus and concentration, increased impulsivity and reckless behavior, poor judgment, difficulty with sleep. The patient said that she has had all of those symptoms at different times, and she admitted that her mood is often more erratic and more labile when she is drinking or using other substances. She says that she also feels worse when she comes down after being intoxicated with cocaine. She says that she does not notice any negative affect from marijuana on her mood. This MD explained that many of the symptoms that the patient is experiencing, including the mood problems that she has had over the last couple of years, could be due entirely to her on again, off again use of multiple mood-altering substances. MD strongly encouraged the patient to consider substance abuse treatment, and MD warned the patient that if she does not stop using mood-altering substances, it is unlikely that any type of psychiatric medications are going to be able to stabilize her mood, that this MD felt that the most important thing that the patient could do to address her mood symptoms was to stop using alcohol, marijuana, and cocaine. The patient said that she was open to talking to an outpatient therapist about the possibility of doing substance abuse treatment, but that she did not want to wait to start medications, and she was not sure that she would actually get substance abuse treatment. This MD strongly encouraged the patient to look into one of the intensive outpatient group therapy programs as well as having individual therapy with a certified addictions counselor through the [facility] or through [facility]. Also, MD let the patient know that there were services in the community, including residential treatment as well as intensive outpatient programs, through [facility], at [facility], and also a [facility] program at [facility]. The patient said that she would take those referrals into consideration, but did not want to make any appointments for intake evaluations at any of them at this time. 6. Patient gave informed consent to begin taking Latuda 20 mg p.o. daily at 6 p.m. MD reviewed the risks, benefits, side effects of this medication, in addition to the discussion that the patient already had with her outpatient prescriber, she felt comfortable starting on this medication. MD reminded the patient again that he did not feel like she met criteria for bipolar spectrum disorder and that it would be impossible to make an accurate diagnosis of unipolar depression or bipolar depression while the patient was continuing to use a significant amount of mood-altering substances. In that case, the MD said the only sure diagnosis that the patient meets at this is substance- induced mood disorder. The patient said that she understood this, and will take it under advisement, and she would discuss it with her outpatient providers when she was discharged. 7. The patient states that she has an appointment with her family independence case manager through [facility] on 06/19/2018. She also has a followup appointment with a prescriber from [facility] in 2 weeks. ESTIMATED LENGTH OF STAY: 2-3 days. /[id number]/MODL MTDD
[2018-06-17] MEDS: LURASIDONE HCL 20 MG TAB PO SCH (17:32)
--- NOTE | 2018-06-17 17:56 | ASMTBHMTP ---
Master Treatment Plan Master Treatment Plan Answers: Depressed Mood with for: Suicidal Ideation Date: 06/17/2018 Diagnosis on Admission: Major Depressive Disorder 296.33 (F33.2) Expected length of stay: 3 Reason for admission: Notes: The patient stated, "I felt like killing myself. I've been depressed for years." The patient reported that she visited [facility] on Tuesday and was advised to begin medication treatment, the patient shared this decision with her father, who is druze, and discouraged her from starting medication. The patient is concerned that he will discontinue her insurance due to disagreeing with treatment. Patient's stated presenting problems: Notes: The patient reported a depressive episode at 14 y/o that resulted in inpatient treatment in [place]. The provider at [facility] recommended that the patient begin Latuda, 20mg due to being on the "Bipolar spectrum." She has a four year history of engaging in therapy. Patient's goals for treatment: Notes: The patient would like to start Latuda while inpatient. She has already scheduled follow up appointments with [facility]. She plans to contact the glass cutter Office. Patient's strengths: Notes: The patient stated, "I'm smart and nice." Identify supports outside of hospital: Notes: The patient is supported by her mother and [facility] at [facility]. Discharge criteria: Notes: Suicidal ideation will resolve and patient will have a plan to safely manage recurrent suicidal ideation. Initial disposition plan/considerations: Notes: The patient will return to her apartment with two roommates, routine, and outpatient services. Master Treatment Plan Required Signatures Psychiatrist signature: Answers: John Rebollar MD: RN on-shift signature: Answers: RN: Patient signature: Answers: Patient: Date Signed: 06/17/2018 05:56 PM Electronically Signed By:Cinthia Mulligan
--- NOTE | 2018-06-18 15:39 | ASMTBHFAM ---
Notes Note: Notes: The patient was visited twice over the weekend by her mother. She completed an KOBE. The patient confirmed follow up appointments with [facility]. She requested to discharge into her mother's care. Date Signed: 06/18/2018 03:39 PM Electronically Signed By:Cinthia Mulligan
[2018-06-18] MEDS: LURASIDONE HCL 20 MG TAB PO SCH (17:16)
--- NOTE | 2018-06-18 18:23 | SOAPPROG ---
SOAP Progress Note Assessment/Plan: Assessment: 18 yo [employer] student admitted after she texted boyfriend she wanted to buy a gun and shoot herself. Patient says now that she didn't mean it, she was just "frustrated" b/c her FOC did not agree with her taking psych meds. Plan: 06/18/18 18:20 1. Patient denies any SE's from Latuda. She says even though her FOC is not supportive of her taking psych meds, she plans to continue on them. 2. MD spoke briefly to patient and her MOC. Patient is very concerned about missing a Chemistry class tomorrow morning. MOC agreed to attend class for her and record it. 3. Patient was taking Aldactone for acne, but says she is OK not taking it in hospital. She will resume medication when she returns home. 4. Patient's M1 expires tomorrow at 1700. 5. CCM Subjective: Patient is wearing same pants and sweatshirt as yesterday. She had lunch with her MOC who came from [place]. Patient is very worried about missing a Chemistry class tomorrow AM. She wants to be discharged today. MD explained that she's only had one dose of Latuda, and even though patient denies any SE's, MD feels patient needs longer period to be observed and monitored while taking medication. Patient and MOC understand why this is important. MOC says she will go to patient's class and record it for her. Patient denies any SI/HI. Objective: Vital Signs Temp Pulse Resp BP Pulse Ox 36.8 C 85 14 86/50 L 96 06/18/18 06:00 06/18/18 06:00 06/18/18 06:00 06/18/18 06:00 06/18/18 06:00 MSE: Affect: Anxious about missing class Mood: "Good" TP: Linear, goal- directed TC: Denies any SI/HI Insight/Judgment: Fair - Time Spent With Patient Time Spent With Patient: 15" - Pending Discharge Pending Discharge Within 24 Hours: Yes Pending Discharge Within 48 Hours: No Pending Discharge Date: 06/19/18 (Likely to d/c on Tuesday) Pending Discharge Time: 11:00 ICD10 Worksheet Patient Problems: Problems Problem Status Onset Depression Acute Suicidal ideation Acute
[2018-06-19 06:45] VITALS: BP 84/56
--- NOTE | 2018-06-19 11:41 | ASMTBHDC ---
Notes Note: Notes: The patient participated in clinical treatment team rounds. She was calm, engaged, and appropriate. The patient continues to feel depressed although her mood has improved and she is no longer having suicidal ideation. She expressed confidence regarding her ability to keep herself safe. The patient's mother, Natalie, will stay with the patient in [place] for the remainder of the week. The patient's case management appointment with [facility] has been rescheduled for this afternoon. Date Signed: 06/19/2018 11:39 AM Electronically Signed By:Cinthia Mulligan
--- NOTE | 2018-06-19 13:07 | BDS ---
[f rep st] BEHAVIORAL HEALTH DISCHARGE SUMMARY REASON FOR ADMISSION: From the ED note dated 06/16/2018, the patient presented to the emergency department with depression, stating that she had been severely depressed and suicidal. The patient reported a plan to buy a gun and shoot herself and kill herself. The patient arrived to the emergency department on an M1 hold by police. The patient was admitted involuntarily on an M1 hold due to being a danger to herself. The patient was admitted for safety, crisis stabilization, and medication management. ADMITTING DIAGNOSIS: Major depressive disorder, severe. ADMISSION PHYSICAL EXAM: The patient was seen for history and physical consultation on 06/17/2018 for medical clearance for inpatient psychiatric hospitalization and treatment. The patient was medically cleared for inpatient psychiatric hospitalization and treatment. For further details, please refer to consultation note dated 06/17/2018. ADMISSION LABS: 1. CBC within normal limits. 2. BMP within normal limits except carbon dioxide low at 21. 3. Hemoglobin A1c within normal limits at 4.8. 4. Liver function within normal limits. 5. Lipid panel within normal limits except cholesterol was low at 133, non-HDL cholesterol was low at 86. 6. Beta HCG qualitative test negative. 7. Toxicology screen was non-negative for urine cocaine and non-negative for urine THC, negative for ethyl alcohol, and negative for all other substances screened. HOSPITAL COURSE: The most prominent symptoms and behaviors while the patient was here were reports of severe depression. Treatment modalities utilized were milieu and group therapy. Latuda 20 mg p.o. daily at 6 p.m. was started to target mood symptoms, was tolerated with no report of side effects. Patient has improved considerably with no signs of psychiatric symptoms and no psychiatric symptoms expressed. Patient reports she has improved since admission, states to be in stable condition, feels safe to discharge, and she contracts for safety. Patients response to treatment was good. There were no adverse or unexpected results of treatment. The patient was safe throughout stay, active in treatment, engaged in groups, and was appropriate with staff. Patient met with treatment team prior to discharge to assess readiness to discharge and review discharge plan. The treatment team consensus is the patient in stable condition, has a safe discharge plan, and is ready to discharge today. CONDITION AT DISCHARGE: Patient is in stable condition and is no longer a danger to self or others, and is not gravely disabled due to mental illness. Patient is no longer in need of inpatient level of care, and can be safely and effectively treated within the community. The patients level of risk at time of discharge is low. MSE: The patient is casually dressed and with good hygiene , and looks stated age. Patient is sitting, posture is upright, and position is relaxed. Patient appears awake, alert, and responds appropriately and reasonably during interview. Patient is engaged, relates well to interviewer, and emotional facial expression is appropriate to situation and changes appropriately with topic. Patient is cooperative, makes comfortable eye contact , and movements are voluntary, deliberate, coordinated, and smooth and even with no inappropriate movements. Patient makes laryngeal sounds effortlessly and shares conversation appropriately; pace of conversation is appropriate, and stream of talking is fluent; articulation is clear and understandable; word choice is effortless and appropriate for education level; completes sentences, occasionally pausing to think; rate and volume are appropriate for interview and setting. Patient reports mood as euthymic. Patients affect is stable with full variable range, congruent with mood, and appropriate to speech and circumstances. Patient has linear and logical thinking, with no loose associations, tangential thought, thought blocking, concrete thinking, or any other signs of formal thought disorder. Patient denies suicidal and homicidal ideation, and denies hallucinations and delusions. Patient appears to be a reliable historian with sound judgement and good insight into current condition. Patient has no apparent dysfunction in recent or remote memory noted , and no evidence of gross cognitive dysfunction noted at any point during the interview. DISCHARGE DIAGNOSES: Major depressive disorder, severe. CURRENT MEDICATIONS: After reviewing options, risks, and benefits with the patient, the patient agrees to continue: 1. Latuda 20 mg p.o. daily at 6 p.m. 2. Spironolactone 50 mg p.o. daily at 1000. 3. Spironolactone 100 mg p.o. at bedtime. 4. Ibuprofen 200 to 600 mg p.o. daily p.r.n. The patient requests prescription for Latuda at the time of discharge, and a prescription for Latuda for 30 days is provided. The prescription is reviewed with the patient at time of discharge to ensure accuracy and patient understanding. DISPOSITION: Patient left hospital independently and voluntarily with her mother and plans to return to her home in [place] and return to [facility] to continue classes. FOLLOWUP: irb compliance coordinator reports the appropriate outpatient follow-up services have been established and outpatient appointments have been scheduled. The patient received written instructions with times and dates of outpatient follow-up appointments. The following follow-up recommendations were provided to the patient at discharge: Continue psychotropic medications as prescribed and attend appointments as scheduled. Report any side effects to a psychiatric outpatient provider, a primary care provider, or other health field care manager. Address any questions or problems concerning the psychotropic medications with a psychiatric outpatient provider, a primary care provider, or other health field care manager. Contact [facility] or [facility], or go to the nearest emergency room, if you are ever a danger to yourself/others, or unable to care for yourself. As soon as possible, establish a routine medication management treatment with a psychiatric provider, establish routine therapy appointments, and follow-up with a primary care provider. LEGAL COURSE: The patient was admitted on an M1 hold for involuntary inpatient psychiatric hospitalization. The patient was discharged today independently and voluntarily. ATTITUDE TIME OF DISCHARGE: The patients attitude was positive at time of discharge, and patient reports looking forward to discharging today. The patient reports she feels safe to discharge, is no longer a danger to herself or others, is in stable condition, and contracts for safety. Patient states she will continue medications as prescribed, and establish medication management treatment with an outpatient provider after discharge. Patient reports she understands the information that has been provided to her, and she understands, accepts, and agrees to psychotropic medications. Patient describes internal protective factors as the coping skills she has learned while hospitalized here, and she plans to continue to practice these coping skills after discharge. FAMILY MEETING: This STOCK PREPARER met with patient and patient's mother at patient's request at time of discharge to assess readiness to discharge and review discharge plan. LABS AND RADIOLOGY STUDIES: There were no pending labs or studies at time. ADVANCE DIRECTIVES: There were no advance directives on file, and patient was full code during this hospitalization. The following psychotropic medication treatment informed consent and recommendations were provided to the patient at time of discharge. Patient reports she understands, accepts, and agrees to the information that has been provided. PSYCHOTROPIC MEDICATION TREATMENT INFORMED CONSENT and RECOMMENDATIONS: Review nature of condition, diagnosis, and prognosis. Review nature and purpose of psychotropic medication treatment. Review type of psychotropic medications being prescribed. Review risk and benefits of psychotropic medication treatment. Review probable length of time will need to take medications. Review risk and benefits of not undergoing psychotropic medication treatment. Review alternative treatments to psychotropic medications. Review psychotropic medications contraindications, side effects, and importance of reporting any side effects to a psychiatric provider, primary care provider, or other health field care manager. Review importance of her asking a psychiatric provider or primary care provider any questions or problems concerning the psychotropic medications. Review importance of reporting to a psychiatric provider, primary care provider, or other health field care manager if she plans to or becomes . Review safety plan and the importance to contact [facility] or [facility] , or go to the nearest emergency room, if ever a danger to yourself/others, or unable to care for yourself. Recommend upon discharge to establish routine medication management treatment with a psychiatric provider, establish routine therapy appointments, and follow-up with a primary care provider. Verify patient understands, accepts, and agrees to the information that has been provided. /[id number]
== END 2018-06-19 12:59 | disposition home or self-care (01) | DRG 751 ==
LOC: BBEH 22:30
PROVIDERS: ADMIT Psychiatry & Neurology Psychiatry; ATTEND Psychiatry & Neurology Psychiatry
DX: F33.2 Major depressive disorder, recurrent severe without psychotic features (principal); R45.851 Suicidal ideations; F14.14 Cocaine abuse with cocaine-induced mood disorder; F10.14 Alcohol abuse with alcohol-induced mood disorder; F12.188 Cannabis abuse with other cannabis-induced disorder; Z63.8 Other specified problems related to primary support group
CPT/HCPCS: 80305; G0480

== ENCOUNTER 2018-10-15 20:09 | Emergency (ER) | payer MEDICAID | END 2018-10-16 10:07 | disposition home or self-care (01) ==